=== PATIENT | female | born 1980 ===

== ENCOUNTER 2024-04-17 12:00 | Inpatient (IN) | payer BC ==
[~2024-04-17] VITALS: Ht 172.7 cm; Wt 101.2 kg
--- NOTE | 2024-04-17 15:25 | NUR ---
Patient to room 307 from EMS. A&Ox4. VSS. IV CDI. Denies pain and discomfort. Nurse oriented the patient to location, room and call light. Reports being tired. Waiting on orders from the doctor. No further needs expressed. Call light within reach
[2024-04-17] MEDS ORDERED: ATIVAN 0.50.5 MG/TAB PO (15:26)
[2024-04-17] MEDS ORDERED: CARAFATE 1GM1 G PO (15:27)
[2024-04-17] MEDS ORDERED: CIPRO 500MG TA500 MG PO (15:28)
[2024-04-17] MEDS ORDERED: LASIX 40MG TABL40 MG PO (15:28)
[2024-04-17] MEDS ORDERED: NORCO 325 MG-51 TAB PO (15:29)
[2024-04-17] MEDS ORDERED: FERROUS GL325 MG/TAB PO (15:30)
[2024-04-17] MEDS ORDERED: ALDACTONE 100M100 MG PO (15:30)
[2024-04-17 15:41] VITALS: BP 112/71; PULSE 75; TEMP 98.2
[2024-04-17] MEDS ORDERED: Docusate Sodium 100 MG CAP PO PRN (16:00)
[2024-04-17] MEDS ORDERED: Acetaminophen 325 MG TAB PO PRN (16:00)
[2024-04-17] MEDS ORDERED: Polyethylene Glycol 3350 17 GM PDS PO PRN (16:00)
[2024-04-17] MEDS ORDERED: Ondansetron 4 MG/2 ML VIAL IV PRN ×2 (16:00→20:45)
[2024-04-17] MEDS ORDERED: Spironolactone 25 MG TAB PO SCH (16:02)
[2024-04-17] MEDS ORDERED: Sucralfate 1 G TAB PO SCH (16:30)
[2024-04-17] MEDS ORDERED: Octreotide 500 MCG in NS 500 ML IV SCH (17:30)
[2024-04-17 17:42] LABS: HEMOGLOBIN 5.3 g/dl (12.5-16.0)
[2024-04-17 17:43] LABS: HEMATOCRIT 17.2 % (37.0-47.0)
[2024-04-17 17:48] LABS: INR 1.5 (0.8-3.0)
--- NOTE | 2024-04-17 17:55 | NUR ---
cRITICAL LAB CALLED TO [facility]
[2024-04-17] MEDS ORDERED: NS 50 ML IV SCH (18:15)
[2024-04-17] MEDS ORDERED: Iohexol 300 - 100 ML VIAL IV ONE (18:16)
[2024-04-17 18:20] LABS: HEMATOCRIT 18.8 % (37.0-47.0); HEMOGLOBIN 5.6 g/dl (12.5-16.0)
[2024-04-17] MEDS ORDERED: oxyCODONE 5 MG TAB PO PRN (18:45)
[2024-04-17 20:00] VITALS: BP 115/56; PULSE 79; TEMP 97.6
[2024-04-17] MEDS ORDERED: Polyethylene Glycol 3350 119 GM BOTTLE PO ONE (20:45)
--- NOTE | 2024-04-17 20:55 | NUR ---
PATIENT RESTING IN BED WATCHING TV AND PLAYING CARDS WITH FAMILY. REPORTS ABDOMINAL PAIN 5/10. CALL LIGHT IS WITHIN REACH. BED IS LOCKED AND IN LOW POSITION.
[2024-04-17] MEDS ORDERED: Propranolol 20 MG TAB PO SCH (21:00)
[2024-04-17 21:18] VITALS: BP_SYST 115
--- NOTE | 2024-04-17 22:25 | NUR ---
PATIENT WAS REFUSING TO ALLOW LAB STAFF TO DRAW HER BLOOD, STATING THAT THEY WERE DRAWING OFF HER IV SITE EARLIER IN THE DAY. DISCUSSED WITH HOSPITALIST, MIRLANDE GUSTAFSON APRN, AND DUE TO HOW LOW HER HGB WAS ON ADMISSION AND THE IMPORTANCE OF SEEING HOW MUCH BLOOD NEEDS TRANSFUSED, THIS RN WAS GIVEN THE OKAY TO DRAW FROM THE SALINE LOCKED IV SITE.
[2024-04-17] MEDS ORDERED: LORazepam 2 MG/ML 1 ML VIAL IV PRN (22:45)
--- NOTE | 2024-04-17 22:57 | NUR ---
PATIENT REQUESTED ATIVAN TO HELP HER RELAX. CALLED HOSPITALIST AND NEW ORDER RECEIVED FOR ATIVAN 0.5MG IV Q6HR PRN FOR ANXIETY.
[2024-04-17 23:31] VITALS: BP 100/62; PULSE 72; TEMP 98.8
[2024-04-17 23:53] VITALS: BP_SYST 100
[2024-04-18] VITALS (18 sets, daily range): BP systolic 90–128; BP diastolic 54–85; PULSE 63–77; TEMP 97.3–98.4
[2024-04-18 00:47] LABS: HEMATOCRIT 17.9 % (37.0-47.0); HEMOGLOBIN 5.3 g/dl (12.5-16.0)
--- NOTE | 2024-04-18 00:48 | NUR ---
HGB OF 5.4 CALLED AND REPORTED TO HOSPITALIST.
[2024-04-18] MEDS ORDERED: NS 250 ML IV ONE (01:30)
[2024-04-18] MEDS ORDERED: LR 1,000 ML IV SCH (06:15)
[2024-04-18 08:03] LABS: BASO # 0.1 K/mm3 (0.0-0.2); BASO % 1.3 % (0.0-2.0); EOS # 0.1 K/mm3 (0.0-0.7); EOS % 3.2 % (0.0-4.0); GRAN # 2.1 K/mm3 (1.4-6.5); GRAN % 54.6 % (42.2-75.2); LYMPH # 1.2 K/mm3 (1.2-3.4); LYMPH % 31.1 % (20.0-51.0); MEAN CELL VOLUME 88 fl (80.0-100.0); MEAN CORPUSCULAR HGB CONC 30 g/dl (33.0-37.0); MEAN PLATELET VOLUME 11.1 fl (7.4-10.4); MONO # 0.4 K/mm3 (0.1-0.6); MONO % 9.5 % (1.7-9.3); PLATELET COUNT 112 K/mm3 (130-400); RED BLOOD COUNT 2.89 M/mm3 (4.10-5.30); REDCELL DISTRIBUTION WIDTH-CV 19.2 % (11.5-14.5)
[2024-04-18 08:10] LABS: HEMATOCRIT 25.3 % (37.0-47.0); MEAN CORPUSCULAR HEMOGLOBIN 27 pg (27-31)
[2024-04-18 08:12] LABS: HEMOGLOBIN 7.7 g/dl (12.5-16.0)
[2024-04-18 08:13] LABS: ALBUMIN 2.7 g/dL (3.5-5.0); BILIRUBIN,TOTAL 1.9 mg/dL (0.2-1.2); CALCIUM 7.8 mg/dL (8.4-10.2); CREATININE, serum 0.65 mg/dL (0.57-1.11); POTASSIUM 4.7 mEq/L (3.5-4.5); TOTAL PROTEIN 6.1 g/dl (6.2-8.1)
--- NOTE | 2024-04-18 08:19 | NUR ---
Receieved report from night sift nurse aDylin. Pt was in room alert and oriented, sitting in chair. Pt has a 20 gauge IV in Right AC with no fluids running at this time. pt also has a 20 gauge IV in left forearm. Pt had Octreotide running in Left forearm at 50.1 mL per hour. Pt is on room air, her is present in the room.
[2024-04-18] MEDS ORDERED: Furosemide 40 MG TAB PO SCH (09:00)
[2024-04-18] MEDS ORDERED: INDERAL 20MG20 MG PO (09:41)
--- NOTE | 2024-04-18 09:57 | NUR ---
Pt. sitting up in bed. Pt. is A&OX3, assessment complete. RN clinical nursing instructor with pt. today. Reviewed assessment of student. INT to rt. ac patent, IV to lt. forearm patent, IV fluids infusing per orders.
[2024-04-18] MEDS ORDERED: Lidocaine PF 2% (20 MG/ML) 5 ML VIAL ONE (10:27)
--- NOTE | 2024-04-18 10:27 | NUR ---
Pt. to Endo at this time.
--- NOTE | 2024-04-18 12:11 | NUR ---
D: Director Of Engineering stopped by room on rounds. A: Pt was resting and content sitting in her chair with her in the room. Pt has no needs right now. P: Director Of Engineering informed pt that if she needed anything from the floor sander area to let her nurse know. Director Of Engineering will follow up as needed.
[2024-04-18] MEDS ORDERED: PROTONIX 40MG T40 MG PO (12:54)
--- NOTE | 2024-04-18 13:50 | NUR ---
Pt. with discharge orders. INT's discontinued from rt. ac and lt. forearm. Pt. tolerated well. Reviewed and gave discharge packet to the pt. Pt. voices understanding. Pt. denies further needs. Pt. dressed and escorted out.
--- NOTE | 2024-04-18 13:51 | NUR ---
Pt was discharged from the medical floor. The pt was alert and oriented upon discharge. The pt had belongins upon discharge. Pt was given discharge insturctions via primary nurse, pt verbalized understanding. Pt left the facility with . Pt ambulated independently.
--- NOTE | 2024-04-18 14:46 | NUR ---
F[employer] Maintainer met with patient to discuss discharge planning. Patient lives in [place] with her , Elmo (ph#[phone]) and their two children ages 11 and 8. Patient sees KAMRYN Maciel for primary care and gets her medications from [facility] in [place]. Patient does not use any DME and is independent with ADLS. Patient does not have DPOA-HC and was not interested in completing one at this time. Discharge Plan; Home
== END 2024-04-18 13:53 | disposition home or self-care (01) | DRG 812 ==
LOC: MEDICAL 12:00
PROVIDERS: Internal Medicine Gastroenterology; ADMIT Internal Medicine
DX: D64.9 Anemia, unspecified (principal); I85.00 Esophageal varices without bleeding; K74.60 Unspecified cirrhosis of liver; D69.6 Thrombocytopenia, unspecified; R73.9 Hyperglycemia, unspecified; F41.9 Anxiety disorder, unspecified
CPT/HCPCS: J2060; J2354-JA; J2704; J7040; J7050; J7120; P9016; Q9967